=== PATIENT | female | born 1965 | race African-American/Black ===

== ENCOUNTER → 2017-06-25 | Outpatient (CLI) | payer BC ==
[~2017-06-25] MED LIST: BIOTIN2500 MCG PO; CENESTIN0.45 MG PO; HCTZ PO; LISINOPRIL20 MG PO; MOBIC PO; MULTI VITAMIN PO; NABUMETONE PO; VIT D PO; VITAMINS; VOLTAREN75 MG PO
--- NOTE | ~2017-06-25 | MY11 ---
[facility] A Service of [facility] RADIOLOGY TEXT RESULTS PATIENT: JORDI FALL LOCATION: [facility] : 61 UNIT #: [id number] AGE: [address]: Radha Luna MD SEX: F ORDER DR: [id number] [place] [id number] O MR#: [id number] Acc #: [id number] NAME: JORDI FALL : 1965 SEX: F STUDY DATE/TIME: 06/25/2017 15:51 UNIT: [facility] ROOM: STUDY DESCRIPTION: MY Mammogram Screening Dig Donnie Attending Physician: Radha Luna M.D. Ordering Physician: Radha Luna M.D. Primary Care Physician: Deya Davison M.D. MEDICAL IMAGING REPORT This report is preliminary unless electronic signature is present. EXAM Digital screening mammogram 06/25/2017 HISTORY 51-year-old woman positive family history, paternal grandmother and 3 paternal aunts. Prior excisional left breast biopsy 2012. COMPARISON STUDIES Comparison mammograms 01/12/2011 and 07/07/2013. FINDINGS Digital imaging of each breast was completed utilizing screening protocol. Review includes FDA-approved CAD device. Breast parenchyma is heterogeneously dense with subareolar duct prominence in each breast. Previously present mass in the lower inner quadrant of the left breast is no longer present. Some architectural distortion outer hemisphere left breast middle third visible on the CC view only is unchanged. There is no interval occurring breast mass. I see no suspicious microcalcifications and no architectural deformity. IMPRESSION Benign mammogram. Annual screening recommended. BIRADS: 2 Benign Finding. Patients over the age of 40 are entered into a reminder system with target due date for the next mammogram. A result letter will also be sent to the patient. Dictated by... [facility] A Service [facility] RADIOLOGY TEXT RESULTS PATIENT: JORDI FALL LOCATION: [facility] : 61 UNIT #: [id number] AGE: [address]: Radha Luna MD SEX: F ORDER DR: Quinn Davila M.D. THIS IS AN ELECTRONICALLY VERIFIED REPORT Quinn Davila M.D. at 06/28/2017 8:08 AM JBB/pcl TD: 06/25/2017 21:38 JOB #: [id number] MEDICAL IMAGING REPORT Page 1 of 1
== END | disposition home or self-care (01) ==
LOC: SMAM 15:06
DX: Z12.31 Encounter for screening mammogram for malignant neoplasm of breast (principal); Z80.3 Family history of malignant neoplasm of breast; Z98.890 Other specified postprocedural states
CPT/HCPCS: G0202